=== PATIENT | male | born 1955 | race Caucasian/White ===

== ENCOUNTER 2016-08-21 19:06 | Emergency (ER) | payer BC ==
[2016-08-21] MEDS ORDERED: HYDROCODONE/ACETAMINOPHEN 5-325 MG 6 TAB/DSPK PO PRN (20:57)
--- NOTE | 2016-08-21 20:57 | ER Document Report ---
ED General - General Chief Complaint: Toe Injury Stated Complaint: INJURED TOE Time Seen by Provider: 08/21/16 20:24 TRAVEL OUTSIDE OF THE [place] IN LAST 30 DAYS: No - HPI Patient complains to provider of: toe injury Notes: Patient coming in for left toe injury after dropping infarcting from his toe today. Patient has a history of diabetes. Patient states pain at the first MCP joint - Related Data Allergies/Adverse Reactions: No Known Allergies Allergy (Verified 11/08/15 07:04) Past Medical History - Social History Smoking Status: Unknown if Ever Smoked Family History: Reviewed & Not Pertinent - Past Medical History Cardiac Medical History: Reports: Hx Hypertension Endocrine Medical History: Reports: Hx Diabetes Mellitus Type 2 Renal/ Medical History: Denies: Hx Peritoneal Dialysis Review of Systems - Review of Systems Constitutional: No symptoms reported EENT: No symptoms reported Cardiovascular: No symptoms reported Respiratory: No symptoms reported Gastrointestinal: No symptoms reported Genitourinary: No symptoms reported Male Genitourinary: No symptoms reported Musculoskeletal: Other - Toe pain Skin: No symptoms reported Hematologic/Lymphatic: No symptoms reported Neurological/Psychological: No symptoms reported Physical Exam - Vital signs Vitals: Pulse Pulse Ox 79 96 08/21/16 19:20 08/21/16 19:20 Interpretation: Normal - General General appearance: Appears well, Alert - HEENT Head: Normocephalic, Atraumatic Eyes: Normal Pupils: PERRL - Respiratory Respiratory status: No respiratory distress Chest status: Nontender Breath sounds: Normal Chest palpation: Normal - Cardiovascular Rhythm: Regular Heart sounds: Normal auscultation Murmur: No - Abdominal Inspection: Normal Distension: No distension Bowel sounds: Normal Tenderness: Nontender Organomegaly: No organomegaly - Back Back: Normal, Nontender - Extremities General upper extremity: Normal inspection, Nontender, Normal color, Normal ROM , Normal temperature General lower extremity: Nontender, Normal color, Normal ROM, Normal temperature , Normal weight bearing. No: Normal inspection - Patient has bruising underneath the first now. There is no redness and swelling of the greater toe. Pain on range of motion., Cori's sign - Neurological Neuro grossly intact: Yes Cognition: Normal Orientation: AAOx4 [place] Coma Scale Eye Opening: Spontaneous Miguel Coma Scale Verbal: Oriented Miguel Coma Scale Motor: Obeys Commands [place] Coma Scale Total: 15 Speech: Normal Motor strength normal: LUE, RUE, LLE, RLE Sensory: Normal - Psychological Associated symptoms: Normal affect, Normal mood - Skin Skin Temperature: Warm Skin Moisture: Dry Skin Color: Normal Course - Re-evaluation Re-evalutation: 08/21/16 20:49 08/21/16 20:57 Shows a fracture. Patient will be placed in a postop shoe. Patient was has crutches at home. Pain medication will be given patient was also given orthopedic follow-up - Vital Signs Vital signs: Temp Pulse Resp BP Pulse Ox 98.2 F 78 174/75 H 96 08/21/16 19:21 08/21/16 19:21 08/21/16 19:21 08/21/16 19:21 Procedures - Immobilization Left Great toe Immobilizer type: Post-op shoe Performed by: CLARE Post-Proc Neuro Vasc Exam: Normal Alignment checked and good: Yes Discharge - Discharge Clinical Impression: Fracture of left great toe Qualifiers: Encounter type: initial encounter Fracture type: closed Phalanx: distal Fracture alignment: nondisplaced Qualified Code(s): S92.425A - Nondisplaced fracture of distal phalanx of left great toe, initial encounter for closed fracture Condition: Good Disposition: HOME, SELF-CARE Instructions: Fractured Toe ([facility]), Oral Narcotic Medication ([facility]) Additional Instructions: He may take Tylenol for pain. Ice and elevation to help out with swelling. He may take the narcotic pain medication for severe pain. He may follow-up with the orthopedic doctor provided in a week. He may also see your primary care doctor for follow-up. Prescriptions: Oxycodone HCl 5 mg PO Q6 #30 tablet Forms: Return to Work Referrals: MARLENI MILLS MD [ACTIVE STAFF] - Follow up in 1 week
[2016-08-22 06:18] VITALS: BP 170/80
== END 2016-08-21 21:05 | disposition home or self-care (01) ==
LOC: ER 19:06
DX: S92.425A Nondisplaced fracture of distal phalanx of left great toe, initial encounter for closed fracture (principal); W20.8XXA Other cause of strike by thrown, projected or falling object, initial encounter; E11.9 Type 2 diabetes mellitus without complications; I10 Essential (primary) hypertension
CPT/HCPCS: 99283

== ENCOUNTER → 2016-11-11 | Outpatient (CLI) | payer BC ==
--- NOTE | 2016-11-11 18:23 | RADIOLOGY REPORT (SQ) ---
EXAM DESCRIPTION: VENOUS UNILATERAL LOWER COMPLETED DATE/TIME: 11/11/2016 5:52 pm REASON FOR STUDY: RLE SWELLING R22.41 LOCALIZED SWELLING, MASS AND LUMP, RIGHT LOWER LIMB COMPARISON: None. TECHNIQUE: Dynamic and static chowdhury scale and color images acquired of the right leg venous system. S elected spectral images acquired with additional compression and augmentation maneuvers. The contrala teral common femoral vein and saphenofemoral junction were also imaged. Images stored on PACS. LIMITATIONS: None. FINDINGS: COMMON FEMORAL: Normal phasicity, compression and augmentation. No visualized echogenic ma terial on chowdhury scale. No defects on color images. FEMORAL: Normal compression and augmentation. No visualized echogenic material on chowdhury scale. No defe cts on color images. POPLITEAL: Normal compression, augmentation. No visualized echogenic material on chowdhury scale. No defec ts on color images. CALF VESSELS: Normal compression, augmentation. No visualized echogenic material on chowdhury scale. No de fects on color images. GSV and SSV: Normal compression, augmentation. No visualized echogenic material on chowdhury scale. No def ects on color images. ANY DEEP VENOUS INSUFFICIENCY: Not evaluated. ANY EVIDENCE OF POPLITEAL CYST: No. OTHER: No other significant finding. CONTRALATERAL COMMON FEMORAL VEIN AND SAPHENOFEMORAL JUNCTION: Normal phasicity, compression and augmentation. No visualized echogenic material on chowdhury scale. No de fects on color images. IMPRESSION: NO EVIDENCE OF DVT OR SVT IN THE RIGHT LEG. TECHNICAL DOCUMENTATION: JOB ID: [id number] [employer]- All Rights Reserved
== END ==
LOC: SP 16:55
PROVIDERS: ATTEND Internal Medicine
DX: R22.41 Localized swelling, mass and lump, right lower limb (principal)
CPT/HCPCS: 93971

== ENCOUNTER → 2018-09-27 | Outpatient (CLI) | payer BC ==
--- NOTE | 2018-09-27 13:48 | RADIOLOGY REPORT (SQ) ---
EXAM DESCRIPTION: CHEST PA/LATERAL COMPLETED DATE/TIME: 09/27/2018 1:35 pm REASON FOR STUDY: CHRONIC SINUSITIS COMPARISON: 12/20/2015 EXAM PARAMETERS: NUMBER OF VIEWS: two views TECHNIQUE: Digital Frontal and Lateral radiographic views of the chest acquired. RADIATION DOSE: NA LIMITATIONS: none FINDINGS: LUNGS AND PLEURA: No opacities, masses or pneumothorax. No pleural effusion. MEDIASTINUM AND HILAR STRUCTURES: No masses or contour abnormalities. HEART AND VASCULAR STRUCTURES: Heart normal size. No evidence for failure. BONES: No acute findings. HARDWARE: None in the chest. OTHER: No other significant finding. IMPRESSION: NO SIGNIFICANT RADIOGRAPHIC FINDING IN THE CHEST. TECHNICAL DOCUMENTATION: JOB ID: [id number] [employer]- All Rights Reserved Reading location - IP/workstation name: [email or web address]
--- NOTE | 2018-09-27 14:15 | RADIOLOGY REPORT (SQ) ---
EXAM DESCRIPTION: PARANASAL SINUSES COMPLETED DATE/TIME: 09/27/2018 1:35 pm REASON FOR STUDY: CHRONIC SINUSITIS J32.9 CHRONIC SINUSITIS, UNSPECIFIED COMPARISON: None. NUMBER OF VIEWS: Three views TECHNIQUE: Images of the paranasal sinuses acquired. LIMITATIONS: None. FINDINGS: ORBITS: No fracture. No foreign body. SINUSES: No mucosal thickening. No air fluid levels. FACIAL BONES: No fracture. OTHER: No other significant finding. IMPRESSION: NO FOREIGN BODY OR FRACTURE. NO PLAIN RADIOGRAPHIC EVIDENCE FOR SINUS DISEASE. TECHNICAL DOCUMENTATION: JOB ID: [id number] [employer]- All Rights Reserved Reading location - IP/workstation name: [email or web address]
== END ==
LOC: OD 13:13
PROVIDERS: ATTEND Internal Medicine
DX: J32.9 Chronic sinusitis, unspecified (principal)
CPT/HCPCS: 70220; 71046

== ENCOUNTER 2020-01-21 17:27 | Emergency (ER) | payer MEDICARE | END 2020-01-21 18:35 | disposition left against medical advice (07) | LOC: ER 17:27 | DX: Z53.21 Procedure and treatment not carried out due to patient leaving prior to being seen by health care provider (principal) ==

== ENCOUNTER 2020-01-21 20:13 | Inpatient (IN) | payer MEDICARE ==
[2020-01-21] MEDS ORDERED: LEVOFLOXACIN 750 MG/D5W RTU 750 MG/150 ML RTUPB IV ONE (21:09)
--- NOTE | 2020-01-21 21:12 | ER Document Report ---
ED Medical Screen (RME) - General Chief Complaint: Cough Stated Complaint: COUGH,CONGESTION Time Seen by Provider: 01/21/20 21:08 Primary Care Provider: JOHN FISHER MD [Primary Care Provider] - Follow up as needed Mode of Arrival: Wheelchair Information source: Patient Notes: HPI; 64-year-old male presents to the emergency room after being diagnosed as an outpatient today for pneumonia by his primary care physician Dr. Fisher Patient states he has had body aches with decreased appetite and a cough since January 10. Has been running low-grade fevers until yesterday. States he did get a COVID test on January 13 and was told on January 17 that he has a positive COVID. Has been taking Tylenol for his fever and pain. PE: Alert and oriented x3. Lungs: Scattered rhonchi no wheezes no rales. Heart: Regular rate rhythm without murmurs, rubs, gallops. I have greeted and performed a rapid initial assessment of this patient. A comprehensive ED assessment and evaluation of the patient, analysis of test results and completion of the medical decision making process will be conducted by additional ED providers. I have specifically instructed the patient or family members with the patient to immediately return to any nursing staff should anything change in the patient's condition or with their chief complaint. TRAVEL OUTSIDE OF THE [place] IN LAST 30 DAYS: No - Related Data Allergies/Adverse Reactions: No Known Allergies Allergy (Verified 11/08/15 07:04) Past Medical History - Past Medical History Cardiac Medical History: Reports: Hx Hypertension Endocrine Medical History: Reports: Hx Diabetes Mellitus Type 2 Renal/ Medical History: Denies: Hx Peritoneal Dialysis Physical Exam - Vital signs Vitals: Temp Pulse Resp BP Pulse Ox 98.4 F 85 20 156/78 H 91 L 01/21/20 21:25 01/21/20 21:25 01/21/20 21:25 01/21/20 21:25 01/21/20 21:25 Course - Vital Signs Vital signs: Temp Pulse Resp BP Pulse Ox 98.4 F 85 20 156/78 H 91 L 01/21/20 21:25 01/21/20 21:25 01/21/20 21:25 01/21/20 21:25 01/21/20 21:25 Doctor's Discharge - Discharge Referrals: JOHN FISHER MD [Primary Care Provider] - Follow up as needed
[2020-01-21 22:31] LABS: ABSOLUTE LYMPHOCYTES (AUTO) 1.5 10^3/uL (0.5-4.7); ABSOLUTE MONOCYTES (AUTO) 0.6 10^3/uL (0.1-1.4); BASOPHILS % (AUTO) 0.5 % (0-2); EOSINOPHILS % (AUTO) 0.9 % (0-6); HEMATOCRIT 45.1 % (37.9-51.0); HEMOGLOBIN 15.3 g/dL (13.5-17.0); LYMPHOCYTES % (AUTO) 28.6 % (13-45); MEAN CORPUSCULAR HEMOGLOBIN 28.6 pg (27.0-33.4); MEAN CORPUSCULAR HGB CONC 33.8 g/dL (32.0-36.0); MEAN CORPUSCULAR VOLUME 84 fl (80-97); MONOCYTES % (AUTO) 12.3 % (3-13); PLATELET COUNT 276 10^3/uL (150-450); RED BLOOD COUNT 5.34 10^6/uL (4.35-5.55); RED CELL DISTRIBUTION WIDTH 14.1 % (11.5-14.0); SEGMENTED NEUTROPHILS % (AUTO) 57.7 % (42-78); TOTAL CELLS COUNTED % (AUTO) 100 %; WHITE BLOOD COUNT 5.2 10^3/uL (4.0-10.5)
--- NOTE | 2020-01-21 22:39 | ER Document Report ---
ED Respiratory Problem - General Chief Complaint: Shortness Of Breath Stated Complaint: COUGH,CONGESTION Time Seen by Provider: 01/21/20 21:08 Primary Care Provider: JOHN FISHER MD [Primary Care Provider] - Follow up as needed Mode of Arrival: Wheelchair Notes: ED Medical Screen ([place] Notes) - General Chief Complaint: Cough Stated Complaint: COUGH,CONGESTION Time Seen by Provider: 01/21/20 21:08 Primary Care Provider: JOHN FISHER MD [Primary Care Provider] - Follow up as needed Mode of Arrival: Wheelchair Information source: Patient Notes: HPI; 64-year-old male presents to the emergency room after being diagnosed as an outpatient today for pneumonia by his primary care physician Dr. Fisher Patient states he has had body aches with decreased appetite and a cough since January 10. Has been running low-grade fevers until yesterday. States he did get a COVID test on January 13 and was told on January 17 that he has a positive COVID. Has been taking Tylenol for his fever and pain. PE: Alert and oriented x3. Lungs: Scattered rhonchi no wheezes no rales. Heart: Regular rate rhythm without murmurs, rubs, gallops. MY NOTES 64-year-old male arrives by POV after being diagnosed on 13 January after having symptoms of fever and cough since 10 January. Patient tested positive for COVID-19. Patient was feeling somewhat better for a few days and then began to have no appetite and no strength and mild cough with no p.o. intake for at least 4 to 5 days. Monday he awoke with severe disorientation. Tonight patient says his appetite is better and would like to drink some Pepsi and peanut butter crackers. His saturations are 91% on oxygen. He reports if he "attempts to walk 5 feet he feels very diaphoretic and weak with tachycardia and cannot walk 10 feet at all." Patient denies any hemoptysis diarrhea constipation smell or taste problems skin rash rhinorrhea nuchal rigidity TRAVEL OUTSIDE OF THE [place] IN LAST 30 DAYS: No - Related Data Allergies/Adverse Reactions: No Known Allergies Allergy (Verified 11/08/15 07:04) Past Medical History - General Information source: Patient - Social History Smoking Status: Former Smoker Frequency of alcohol use: None Drug Abuse: None Family History: Reviewed & Not Pertinent - Past Medical History Cardiac Medical History: Reports: Hx Hypertension Endocrine Medical History: Reports: Hx Diabetes Mellitus Type 2 Renal/ Medical History: Denies: Hx Peritoneal Dialysis Physical Exam - Vital signs Vitals: Temp Pulse Resp BP Pulse Ox 98.4 F 85 20 156/78 H 91 L 01/21/20 21:25 01/21/20 21:25 01/21/20 21:25 01/21/20 21:25 01/21/20 21:25 Course - Vital Signs Vital signs: Temp Pulse Resp BP Pulse Ox 98.4 F 85 20 156/78 H 91 L 01/21/20 22:15 01/21/20 21:25 01/21/20 21:25 01/21/20 21:25 01/21/20 21:25 - Laboratory Result Diagrams: 01/21/20 22:15 01/21/20 22:15 Laboratory results interpreted by me: 01/21/20 01/21/20 01/21/20 22:15 22:15 22:42 RDW 14.1 H Sodium 134.5 L Chloride 92 L Glucose 172 H Direct Bilirubin 0.5 H ALT 56 H Urine Protein 100 H Urine Glucose (UA) >=500 H Urine Ketones 20 H Urine Blood SMALL H - Diagnostic Test Radiology reviewed: Reports reviewed - EKG Interpretation by Me EKG shows normal: Sinus rhythm Rate: Normal Rhythm: NSR Critical Care Note - Critical Care Note Comments: Via the roll clamp operator telephone of the hospital we spoke with Dr. Fisher at 2320 and he advised admission. Advised Dr. Fisher of the patient's chest x-ray and physical findings and the fact that we had ordered rimmed to severe Decadron Pepcid Lovenox aspirin and Levaquin. Discharge - Discharge Clinical Impression: COVID-19 virus infection, Pneumonitis Dyspnea Qualifiers: Dyspnea type: unspecified Qualified Code(s): R06.00 - Dyspnea, unspecified Condition: Stable Disposition: ADMITTED INPATIENT Admitting Provider: Will Unit Admitted: IMCU Referrals: JOHN FISHER MD [Primary Care Provider] - Follow up as needed
[2020-01-21 22:50] LABS: ALBUMIN 4.2 g/dL (3.5-5.0); ALKALINE PHOSPHATASE 111 U/L (38-126); ANION GAP 16 (5-19); ASPARTATE AMINO TRANSFERASE 49 U/L (17-59); BILIRUBIN,DIRECT 0.5 mg/dL (0.0-0.4); BILIRUBIN,TOTAL 0.7 mg/dL (0.2-1.3); BLOOD UREA NITROGEN 20 mg/dL (7-20); CALCIUM 9.6 mg/dL (8.4-10.2); CARBON DIOXIDE 27 mmol/L (22-30); CHLORIDE 92 mmol/L (98-107); GLUCOSE 172 mg/dL (75-110); POTASSIUM 4.1 mmol/L (3.6-5.0); TOTAL PROTEIN 7.8 g/dL (6.3-8.2)
[2020-01-21 22:58] LABS: APPEARANCE,URINE CLEAR; BILIRUBIN,URINE NEGATIVE (NEGATIVE); COLOR,URINE YELLOW; GLUCOSE, URINE >=500 mg/dL (NEGATIVE); KETONES,URINE 20 mg/dL (NEGATIVE); LEUKOCYTE ESTERASE,URINE NEGATIVE (NEGATIVE); NITRITE,URINE NEGATIVE (NEGATIVE); PROTEIN,URINE 100 mg/dL (NEGATIVE); URINE SPECIFIC GRAVITY 1.037; UROBILINOGEN,URINE NEGATIVE mg/dL (<2.0)
[2020-01-21] MEDS ORDERED: DEXAMETHASONE SOD PHOS INJ 10 MG/1 ML VIAL IV ONE (23:18)
[2020-01-21] MEDS ORDERED: FAMOTIDINE INJ/PF 20 MG/2 ML SDV IV ONE (23:19)
[2020-01-21] MEDS ORDERED: ASPIRIN 81 MG TABLET, CHEWABLE PO ONE (23:20)
[2020-01-21] MEDS ORDERED: ENOXAPARIN SODIUM INJ 100 MG/1 ML DISP.SYRIN SUBCUT SCH (23:30)
[2020-01-21 23:39] LABS: INTERNATIONAL RATION (INR) 0.88; PARTIAL THROMBOPLASTIN TIME 27.1 SEC (23.5-35.8); PROTHROMBIN TIME 12.2 SEC (11.4-15.4)
[2020-01-21] MEDS ORDERED: GLUCAGON,HUMAN RECOMB 1 MG INJ IM PRN (23:39)
[2020-01-21] MEDS ORDERED: DEXTROSE 50%-WATER 25 GM/50 ML DISP.SYRIN IV PRN ×2 (23:39)
[2020-01-21] MEDS ORDERED: DEXTROSE 40% GEL 15 GM TUBE PO PRN ×2 (23:39)
--- NOTE | 2020-01-21 23:39 | RADIOLOGY REPORT (SQ) ---
EXAM DESCRIPTION: XR CHEST 1 VIEW COMPLETED DATE/TME: 01/21/2020 22:40 CLINICAL HISTORY: 64 years, Male, covid pos COMPARISON: 01/21/2020 chest at 12:54 PM NUMBER OF VIEWS: 1 TECHNIQUE: Portable chest LIMITATIONS: None. FINDINGS: Heart size upper limits of normal. Interstitial and airspace opacities bilaterally. No pneumothorax. IMPRESSION: Interstitial and airspace opacities bilaterally, as before copyright 2010 [employer]- All Rights Reserved
--- NOTE | 2020-01-21 23:40 | PDOC H&P ---
History of Present Illness Admission Date/PCP: JOHN FISHER MD History of Present Illness: MYNOR GALINDO JR is a 64 year old male, Patient was diagnosed with SARS-CoV-2 infection, I had a telehealth encounter with him yesterday, he complained of shortness of breath, I ordered a chest x-ray, it demonstrated multifocal bilateral infiltrates consistent with COVID immediately advised him to go to the ER for evaluation and possible admission.Arterial blood gas revealed pH 7.46, PO2 37.8, bicarbonate 25.1 on ambient air Past Medical History Cardiac Medical History: Reports: Coronary Artery Disease, Hypertension Endocrine Medical History: Reports: Diabetes Mellitus Type 2 Social History Smoking Status: Former Smoker Frequency of Alcohol Use: None Drugs: None Hx Prescription Drug Abuse: No Family History Family History: Reviewed & Not Pertinent Parental Family History Reviewed: Yes Children Family History Reviewed: Yes Sibling(s) Family History Reviewed.: Yes Medication/Allergy Home Medications: Amlodipine Besylate 5 mg PO DAILY 11/08/15 Losartan Potassium 100 mg PO DAILY 11/08/15 Metformin HCl [Glucophage] 1,000 mg PO BID 11/08/15 Metoprolol Tartrate [Lopressor 25 mg Tablet] 25 mg PO Q12 11/08/15 Aspirin [Ecotrin 81 mg EC Tablet] 81 mg PO DAILY #30 tabec 11/10/15 Glimepiride [Amaryl] 2 mg PO BID #0 tablet 11/10/15 Acetaminophen [Tylenol 8 Hour] 1,300 mg PO Q8HP PRN 01/22/20 Chlorpheniramine Maleate [Chlor-Trimeton 4 mg Tablet] 4 mg PO Q6HP PRN 01/22/20 Clopidogrel Bisulfate [Plavix 75 mg Tablet] 75 mg PO DAILY 01/22/20 Empagliflozin [Jardiance] 25 mg PO DAILY 01/22/20 Pantoprazole Sodium [Protonix [address] Tablet] 40 mg PO Q6AM 01/22/20 Allergies/Adverse Reactions: No Known Allergies Allergy (Verified 11/08/15 07:04) Review of Systems Constitutional: ABSENT: chills, fever(s), headache(s), weight gain, weight loss Eyes: ABSENT: visual disturbances Ears: ABSENT: hearing changes Cardiovascular: ABSENT: chest pain, dyspnea on exertion, edema, orthropnea, palpitations Respiratory: PRESENT: cough, dyspnea Gastrointestinal: ABSENT: abdominal pain, constipation, diarrhea, hematemesis, hematochezia, nausea, vomiting Genitourinary: ABSENT: dysuria, hematuria Musculoskeletal: ABSENT: joint swelling Integumentary: ABSENT: rash, wounds Neurological: ABSENT: abnormal gait, abnormal speech, confusion, dizziness, focal weakness, syncope Psychiatric: ABSENT: anxiety, depression, homidical ideation, suicidal ideation Endocrine: ABSENT: cold intolerance, heat intolerance, menstrual abnormalities, polydipsia, polyuria Hematologic/Lymphatic: ABSENT: easy bleeding, easy bruising, lymphadenopathy Physical Exam Vital Signs: Temp Pulse Resp BP Pulse Ox 98.4 F 85 20 156/78 H 91 L 01/21/20 22:15 01/21/20 21:25 01/21/20 21:25 01/21/20 21:25 01/21/20 21:25 Intake & Output 01/20/20 01/21/20 01/22/20 06:59 06:59 06:59 Weight 108.862 kg General appearance: PRESENT: no acute distress Head exam: PRESENT: atraumatic, normocephalic Ear exam: PRESENT: normal external ear exam Mouth exam: PRESENT: moist, tongue midline Neck exam: PRESENT: full ROM Respiratory exam: PRESENT: rhonchi Cardiovascular exam: PRESENT: RRR, +S1, +S2 Pulses: PRESENT: normal dorsalis pedis pul, +2 pedal pulses bilateral Vascular exam: PRESENT: normal capillary refill GI/Abdominal exam: PRESENT: normal bowel sounds, soft Rectal exam: PRESENT: deferred Neurological exam: PRESENT: alert, CN II-XII grossly intact Psychiatric exam: PRESENT: appropriate affect, normal mood Skin exam: PRESENT: dry, intact, warm. ABSENT: cyanosis, rash Results Laboratory Results: 01/21/20 22:15 01/21/20 22:15 01/21/20 01/21/20 01/21/20 22:15 22:15 22:15 WBC 5.2 RBC 5.34 Hgb 15.3 Hct 45.1 MCV 84 MCH 28.6 MCHC 33.8 RDW 14.1 H Plt Count 276 Seg Neutrophils % 57.7 Sodium 134.5 L Potassium 4.1 Chloride 92 L Carbon Dioxide 27 Anion Gap 16 BUN 20 Creatinine 0.86 Est GFR ( Amer) > 60 Glucose 172 H Lactic Acid 1.3 Calcium 9.6 Total Bilirubin 0.7 AST 49 Alkaline Phosphatase 111 Total Protein 7.8 Albumin 4.2 Urine Color Urine Appearance Urine pH Ur Specific [place] Urine Protein Urine Glucose (UA) Urine Ketones Urine Blood Urine Nitrite Ur Leukocyte Esterase Urine WBC (Auto) Urine RBC (Auto) 01/21/20 22:42 WBC RBC Hgb Hct MCV MCH MCHC RDW Plt Count Seg Neutrophils % Sodium Potassium Chloride Carbon Dioxide Anion Gap BUN Creatinine Est GFR ( Amer) Glucose Lactic Acid Calcium Total Bilirubin AST Alkaline Phosphatase Total Protein Albumin Urine Color YELLOW Urine Appearance CLEAR Urine pH 5.0 Ur Specific [place] 1.037 Urine Protein 100 H Urine Glucose (UA) >=500 H Urine Ketones 20 H Urine Blood SMALL H Urine Nitrite NEGATIVE Ur Leukocyte Esterase NEGATIVE Urine WBC (Auto) 1 Urine RBC (Auto) 0 Impressions: Chest X-Ray 01/21/20 22:40 IMPRESSION: Interstitial and airspace opacities bilaterally, as before copyright 2011 [employer]- All Rights Reserved Assessment & Plan - Diagnosis (1) Acute hypoxemic respiratory failure Is this a current diagnosis for this admission?: Yes Plan: Patient to be started on supplemental oxygen via nasal cannula (2) Acute hypoxemic respiratory failure due to COVID-19 Is this a current diagnosis for this admission?: Yes Plan: Start Remdesivir for a total of 5 days, dexamethasone for a total of 10 days (3) T2DM (type 2 diabetes mellitus) Qualifiers: Diabetes mellitus retirement insulin use: with retirement use Diabetes mellitus complication status: with neurologic complications Diabetes mellitus complication detail: with polyneuropathy Qualified Code(s): E11.42 - Type 2 diabetes mellitus with diabetic polyneuropathy; Z79.4 - senior care (current) use of insulin Is this a current diagnosis for this admission?: Yes Plan: Most likely hyperglycemia will ensue from use of dexamethasone needs to watch closely especially in this patient with poorly controlled diabetes at baseline (4) Coronary artery disease Qualifiers: Coronary Disease-Associated Artery/Lesion type: [place] artery [place] vs. transplanted heart: [place] heart Associated angina: without angina Qualified Code(s): I25.10 - Atherosclerotic heart disease of [place] coronary artery wi thout angina pectoris Is this a current diagnosis for this admission?: Yes - Time Time Spent: Greater than 70 Minutes Critical Time spent with patient: 35 or more minutes Medications reviewed and adjusted accordingly: Yes Anticipated Discharge Disposition: Home, Self Care Anticipated Discharge Timeframe: 10 days - Inpatient Certification Based on my medical assessment, after consideration of the patient's comorbidities, presenting symptoms, or acuity I expect that the services needed warrant INPATIENT care.: Yes I certify that my determination is in accordance with my understanding of Medicare's requirements for reasonable and necessary INPATIENT services [42 CFR 412.3e].: Yes
[2020-01-21] MEDS ORDERED: INSULIN LISPRO 100 UNIT/ML 3 ML VIAL SUBCUT ONE (23:45)
[2020-01-22 00:22] LABS: CREATINE KINASE MB 0.57 ng/mL (<4.55); NT PRO BNP 35 pg/mL (<125)
[2020-01-22 00:25] LABS: TROPONIN I < 0.012 ng/mL
[2020-01-22] MEDS ORDERED: ENOXAPARIN SODIUM INJ 40 MG/0.4 ML DISP.SYRIN SUBCUT ONE (00:30)
[2020-01-22 01:42] LABS: ARTERIAL BLOOD BASE EXCESS 1.5 mmol/L; ARTERIAL BLOOD HCO3 25.1 mmol/L (20-24); ARTERIAL BLOOD O2 SATURATION 75.1 % (94-98); ARTERIAL BLOOD PCO2 36.4 mmHg (35-45); ARTERIAL BLOOD PH 7.46 (7.35-7.45); ARTERIAL BLOOD TOTAL CO2 26.2 mmol/L (23-27)
[2020-01-22 01:44] LABS: ARTERIAL BLOOD FIO2 ROOM AIR
[2020-01-22 01:46] LABS: ARTERIAL BLOOD PO2 37.8 mmHg (80-100)
[2020-01-22] MEDS: NORMAL SALINE 1000 ML 1,000 ML IV PRN (04:20)
[2020-01-22 06:49] LABS: APPEARANCE,URINE CLEAR; BILIRUBIN,URINE NEGATIVE (NEGATIVE); COLOR,URINE YELLOW; GLUCOSE, URINE >=500 mg/dL (NEGATIVE); KETONES,URINE 20 mg/dL (NEGATIVE); LEUKOCYTE ESTERASE,URINE NEGATIVE (NEGATIVE); NITRITE,URINE NEGATIVE (NEGATIVE); PROTEIN,URINE 30 mg/dL (NEGATIVE); URINE SPECIFIC GRAVITY 1.031; UROBILINOGEN,URINE NEGATIVE mg/dL (<2.0)
[2020-01-22 07:29] LABS: HEMATOCRIT 39.9 % (37.9-51.0); MEAN CORPUSCULAR HEMOGLOBIN 29.6 pg (27.0-33.4); MEAN CORPUSCULAR VOLUME 85 fl (80-97); PLATELET COUNT 235 10^3/uL (150-450); RED BLOOD COUNT 4.72 10^6/uL (4.35-5.55); RED CELL DISTRIBUTION WIDTH 13.9 % (11.5-14.0); WHITE BLOOD COUNT 3.7 10^3/uL (4.0-10.5)
[2020-01-22 07:42] LABS: ALBUMIN 3.9 g/dL (3.5-5.0); ALKALINE PHOSPHATASE 106 U/L (38-126); ANION GAP 17 (5-19); ASPARTATE AMINO TRANSFERASE 38 U/L (17-59); BILIRUBIN,DIRECT 0.5 mg/dL (0.0-0.4); BILIRUBIN,TOTAL 0.7 mg/dL (0.2-1.3); BLOOD UREA NITROGEN 22 mg/dL (7-20); CARBON DIOXIDE 19 mmol/L (22-30); CHLORIDE 96 mmol/L (98-107); GLUCOSE 249 mg/dL (75-110); POTASSIUM 4.6 mmol/L (3.6-5.0); TOTAL PROTEIN 7.4 g/dL (6.3-8.2)
[2020-01-22] MEDS ORDERED: REMDESIVIR (EUA) 200 MG in NORMAL SALINE 250 ML IV ONE ×2 (08:00→10:00)
[2020-01-22] MEDS: INSULIN LISPRO 100 UNIT/ML 3 ML VIAL SUBCUT SCH ×4 (08:34→23:41)
[2020-01-22] MEDS: DEXAMETHASONE SOD PHOSPHATE INJ 4 MG/1 ML VIAL IV SCH ×2 (11:42→23:40)
[2020-01-22] MEDS: LEVOFLOXACIN 750 MG/D5W RTU 750 MG/150 ML RTUPB IV SCH (23:39)
[2020-01-22] MEDS: ENOXAPARIN SODIUM INJ 40 MG/0.4 ML DISP.SYRIN SUBCUT SCH (23:39)
[2020-01-23] MEDS: NORMAL SALINE 1000 ML 1,000 ML IV PRN (06:29)
[2020-01-23 06:44] LABS: ABSOLUTE LYMPHOCYTES (AUTO) 0.9 10^3/uL (0.5-4.7); ABSOLUTE MONOCYTES (AUTO) 0.5 10^3/uL (0.1-1.4); ABSOLUTE NEUT (AUTO) 2.5 10^3/uL (1.7-8.2); BASOPHILS % (AUTO) 0.2 % (0-2); HEMATOCRIT 38.5 % (37.9-51.0); LYMPHOCYTES % (AUTO) 22.2 % (13-45); MEAN CORPUSCULAR HGB CONC 33.9 g/dL (32.0-36.0); MEAN CORPUSCULAR VOLUME 86 fl (80-97); MONOCYTES % (AUTO) 12.4 % (3-13); PLATELET COUNT 277 10^3/uL (150-450); RED CELL DISTRIBUTION WIDTH 14.4 % (11.5-14.0); SEGMENTED NEUTROPHILS % (AUTO) 65.2 % (42-78); TOTAL CELLS COUNTED % (AUTO) 100 %; WHITE BLOOD COUNT 3.9 10^3/uL (4.0-10.5)
[2020-01-23 07:01] LABS: ALBUMIN 3.7 g/dL (3.5-5.0); ALKALINE PHOSPHATASE 91 U/L (38-126); ANION GAP 13 (5-19); ASPARTATE AMINO TRANSFERASE 34 U/L (17-59); BILIRUBIN,DIRECT 0.5 mg/dL (0.0-0.4); BILIRUBIN,TOTAL 0.7 mg/dL (0.2-1.3); BLOOD UREA NITROGEN 31 mg/dL (7-20); CARBON DIOXIDE 23 mmol/L (22-30); CHLORIDE 99 mmol/L (98-107); GLUCOSE 261 mg/dL (75-110); POTASSIUM 4.2 mmol/L (3.6-5.0); TOTAL PROTEIN 7.3 g/dL (6.3-8.2)
[2020-01-23] MEDS ORDERED: INFLUENZA QUAD (6MOS+) 2020-21 VAC 0.5 ML SYR IM ONE (08:00)
[2020-01-23] MEDS: INSULIN LISPRO 100 UNIT/ML 3 ML VIAL SUBCUT SCH ×4 (08:17→21:31)
--- NOTE | 2020-01-23 08:28 | RADIOLOGY REPORT (SQ) ---
EXAM DESCRIPTION: CTA CHEST IMAGES COMPLETED DATE/TIME: 01/23/2020 7:54 am REASON FOR STUDY: severe hypoxemia r/o PE COMPARISON: Chest x-ray dated 01/21/2020. Chest CTA dated 11/09/2015. TECHNIQUE: CT scan of the chest performed using helical scanning technique with dynamic intravenous contrast injection. Images reviewed with lung, soft tissue and bone windows. Reconstructed coronal and sagittal MPR images reviewed. Additional 3 dimensional post-processing performed to develop Maximal Intensity Projection images (CA P). All images stored on PACS. All CT scanners at this facility use dose modulation, iterative reconstruction, and/or weight based d osing when appropriate to reduce radiation dose to as low as reasonably achievable (ALARA). [facility]: Dose Right [facility]: CareDose [facility]: Dose Right [facility]: Teradose 4D [facility]: [employer] CONTRAST TYPE AND DOSE: contrast/concentration: Isovue 350.00 mmol/ml; Total Contrast Delivered: 80. 0 ml; Total Saline Delivered: 65.0 ml Contrast bolus adequate for pulmonary arteries and aorta. RENAL FUNCTION: BUN 22 creatinine 0.73. RADIATION DOSE: CT Rad equipment meets quality standard of care and radiation dose reduction techniq ues were employed. CTDIvol: 15.6 - 26.3 mGy. DLP: 603 mGy-cm. . LIMITATIONS: None. FINDINGS: LUNGS AND PLEURA: Diffuse scattered ground-glass opacities throughout both lungs. No pleu ral effusions or pleural calcifications. AORTA AND GREAT VESSELS: No aneurysm. No dissection. HEART: No pericardial effusion. No significant coronary artery calcifications. PULMONARY ARTERIES: No emboli visualized in the main pulmonary arteries or the segmental branches. HILAR AND MEDIASTINAL STRUCTURES: Mediastinal and bilateral hilar adenopathy, unchanged from prior CT A. HARDWARE: None in the chest. UPPER ABDOMEN: No significant findings. Limited exam. THYROID AND OTHER SOFT TISSUES: No masses. No adenopathy. BONES: No acute or significant finding. 3D MIPS: Confirm above findings. OTHER: No other significant finding. IMPRESSION: 1. NORMAL CTA OF THE CHEST. NO PULMONARY EMBOLI. 2. DIFFUSE SCATTERED GROUND-GLASS OPACITIES CONSISTENT WITH PNEUMONIA, LIKELY VIRAL. 3. MEDIASTINAL AND BILATERAL HILAR ADENOPATHY, UNCHANGED FROM PRIOR CTA IN 2016. COMMENT: Quality ID # [id number]: Final reports with documentation of one or more dose reduction techniques (e.g., Automated exposure control, adjustment of the mA and/or kV according to patient size, use of iterative reconstruction technique) TECHNICAL DOCUMENTATION: JOB ID: [id number] 2010 [employer]- All Rights Reserved Reading location - IP/workstation name: [email or web address]
[2020-01-23] MEDS: DEXAMETHASONE SOD PHOSPHATE INJ 4 MG/1 ML VIAL IV SCH ×2 (10:29→21:11)
[2020-01-23] MEDS: REMDESIVIR (EUA) 100 MG in NORMAL SALINE 250 ML IV SCH (10:29)
[2020-01-23] MEDS: LEVOFLOXACIN 750 MG/D5W RTU 750 MG/150 ML RTUPB IV SCH (21:12)
[2020-01-23] MEDS: ENOXAPARIN SODIUM INJ 40 MG/0.4 ML DISP.SYRIN SUBCUT SCH (21:13)
--- NOTE | 2020-01-23 21:33 | PDOC PROGRESS REPORT ---
Subjective Progress Note for:: 01/23/20 Subjective:: Patient was admitted yesterday for treatment of COVID pneumonia,The CT angiogram of the chest negative for PE confirmed pneumonia Reason For Visit: COVID PNEUMONIA, T2DM, CAD Physical Exam Vital Signs: Temp Pulse Resp BP Pulse Ox 97.8 F 62 16 160/85 H 97 01/23/20 20:18 01/23/20 20:18 01/23/20 20:18 01/23/20 20:18 01/23/20 20:18 Intake & Output 01/22/20 01/23/20 01/24/20 06:59 06:59 06:59 Intake Total 150 3204 970 Output Total 3100 Balance 150 104 970 Weight 109 kg 109.3 kg General appearance: PRESENT: no acute distress Eye exam: PRESENT: PERRLA Respiratory exam: PRESENT: rhonchi Cardiovascular exam: PRESENT: +S1, +S2 GI/Abdominal exam: PRESENT: soft Neurological exam: PRESENT: alert, CN II-XII grossly intact Results Laboratory Results: 01/23/20 05:53 01/23/20 05:53 01/23/20 01/23/20 05:53 05:53 WBC 3.9 L RBC 4.50 Hgb 13.0 L Hct 38.5 MCV 86 MCH 29.0 MCHC 33.9 RDW 14.4 H Plt Count 277 Seg Neutrophils % 65.2 Sodium 134.8 L Potassium 4.2 Chloride 99 Carbon Dioxide 23 Anion Gap 13 BUN 31 H Creatinine 0.88 Est GFR ( Amer) > 60 Glucose 261 H Calcium 9.0 Total Bilirubin 0.7 AST 34 Alkaline Phosphatase 91 Total Protein 7.3 Albumin 3.7 01/21/20 01/21/20 23:30 23:30 Creatine Kinase 45 L CK-MB (CK-2) 0.57 Troponin I < 0.012 NT-Pro-B Natriuret Pep 35 Impressions: Chest X-Ray 01/21/20 22:40 IMPRESSION: Interstitial and airspace opacities bilaterally, as before copyright 2011 [employer]- All Rights Reserved Chest/Abdomen CTA 01/23/20 00:00 IMPRESSION: 1. NORMAL CTA OF THE CHEST. NO PULMONARY EMBOLI. 2. DIFFUSE SCATTERED GROUND-GLASS OPACITIES CONSISTENT WITH PNEUMONIA, LIKELY V IRAL. 3. MEDIASTINAL AND BILATERAL HILAR ADENOPATHY, UNCHANGED FROM PRIOR CTA IN 2016. Assessment & Plan - Diagnosis (1) Acute hypoxemic respiratory failure Is this a current diagnosis for this admission?: Yes Plan: Continue supplemental oxygen via nasal cannula (2) Acute hypoxemic respiratory failure due to COVID-19 Is this a current diagnosis for this admission?: Yes Plan: Continue IV Remdesivir for a total of 5 days, IV dexamethasone for a total of 10 days (3) T2DM (type 2 diabetes mellitus) Qualifiers: Diabetes mellitus [facility] insulin use: with intermediate manager use Diabetes mellitus complication status: with neurologic complications Diabetes mellitus complication detail: with polyneuropathy Qualified Code(s): E11.42 - Type 2 diabetes mellitus with diabetic polyneuropathy; Z79.4 - superintendent container terminal (current) use of insulin Is this a current diagnosis for this admission?: Yes (4) Coronary artery disease Qualifiers: Coronary Disease-Associated Artery/Lesion type: [place] artery [place] vs. transplanted heart: [place] heart Associated angina: without angina Qualified Code(s): I25.10 - Atherosclerotic heart disease of [place] coronary artery without angina pectoris Is this a current diagnosis for this admission?: Yes - Time Time Spent with patient: 25-34 minutes Level of Care: IMCU Medications reviewed and adjusted accordingly: Yes Anticipated discharge: Home Anticipated DC Timeframe: within 72 hours - Inpatient Certification Based on my medical assessment, after consideration of the patient's comorbidities, presenting symptoms, or acuity I expect that the services needed warrant INPATIENT care.: Yes I certify that my determination is in accordance with my understanding of Medicare's requirements for reasonable and necessary INPATIENT services [42 CFR 412.3e].: Yes
[2020-01-24 05:44] LABS: ABSOLUTE LYMPHOCYTES (AUTO) 0.9 10^3/uL (0.5-4.7); ABSOLUTE MONOCYTES (AUTO) 0.4 10^3/uL (0.1-1.4); ABSOLUTE NEUT (AUTO) 2.6 10^3/uL (1.7-8.2); BASOPHILS % (AUTO) 0.2 % (0-2); HEMATOCRIT 40.5 % (37.9-51.0); LYMPHOCYTES % (AUTO) 22.4 % (13-45); MEAN CORPUSCULAR HEMOGLOBIN 29.4 pg (27.0-33.4); MEAN CORPUSCULAR HGB CONC 34.5 g/dL (32.0-36.0); MEAN CORPUSCULAR VOLUME 85 fl (80-97); MONOCYTES % (AUTO) 9.7 % (3-13); PLATELET COUNT 287 10^3/uL (150-450); RED BLOOD COUNT 4.77 10^6/uL (4.35-5.55); RED CELL DISTRIBUTION WIDTH 14.2 % (11.5-14.0); SEGMENTED NEUTROPHILS % (AUTO) 67.7 % (42-78); TOTAL CELLS COUNTED % (AUTO) 100 %; WHITE BLOOD COUNT 3.9 10^3/uL (4.0-10.5)
[2020-01-24 06:11] LABS: ALBUMIN 3.9 g/dL (3.5-5.0); ALKALINE PHOSPHATASE 93 U/L (38-126); ANION GAP 13 (5-19); ASPARTATE AMINO TRANSFERASE 33 U/L (17-59); BILIRUBIN,DIRECT 0.4 mg/dL (0.0-0.4); BILIRUBIN,TOTAL 0.7 mg/dL (0.2-1.3); BLOOD UREA NITROGEN 30 mg/dL (7-20); CALCIUM 9.2 mg/dL (8.4-10.2); CARBON DIOXIDE 23 mmol/L (22-30); CHLORIDE 100 mmol/L (98-107); GLUCOSE 237 mg/dL (75-110); POTASSIUM 4.7 mmol/L (3.6-5.0); TOTAL PROTEIN 7.1 g/dL (6.3-8.2)
[2020-01-24 08:23] LABS: APPEARANCE,URINE CLEAR; BILIRUBIN,URINE NEGATIVE (NEGATIVE); COLOR,URINE YELLOW; GLUCOSE, URINE >=500 mg/dL (NEGATIVE); KETONES,URINE 20 mg/dL (NEGATIVE); LEUKOCYTE ESTERASE,URINE NEGATIVE (NEGATIVE); NITRITE,URINE NEGATIVE (NEGATIVE); PROTEIN,URINE NEGATIVE (NEGATIVE); UROBILINOGEN,URINE NEGATIVE mg/dL (<2.0)
[2020-01-24] MEDS: INSULIN LISPRO 100 UNIT/ML 3 ML VIAL SUBCUT SCH ×4 (08:47→22:49)
[2020-01-24] MEDS: DEXAMETHASONE SOD PHOSPHATE INJ 4 MG/1 ML VIAL IV SCH ×2 (12:12→21:15)
[2020-01-24] MEDS: REMDESIVIR (EUA) 100 MG in NORMAL SALINE 250 ML IV SCH (12:13)
[2020-01-24] MEDS: NORMAL SALINE 1000 ML 1,000 ML IV PRN (19:00)
[2020-01-24] MEDS: ENOXAPARIN SODIUM INJ 40 MG/0.4 ML DISP.SYRIN SUBCUT SCH (21:16)
[2020-01-24] MEDS: LEVOFLOXACIN 750 MG/D5W RTU 750 MG/150 ML RTUPB IV SCH (21:16)
--- NOTE | 2020-01-24 22:17 | PDOC PROGRESS REPORT ---
Subjective Progress Note for:: 01/24/20 Subjective:: Patient was admitted for the management of COVID-19 positive test (U07.1, COVID- 19) with Acute Pneumonia (J12.89, Other viral pneumonia) (If respiratory failure or sepsis present, add as separate assessment)Associated with hypoxemia Presently on IV remdesivir IV dexamethasone, he continues to require supplemental oxygen via nasal cannula, he has no new complaints. CTA chest done yesterday negative for pulmonary embolism Reason For Visit: COVID PNEUMONIA, T2DM, CAD Physical Exam Vital Signs: Temp Pulse Resp BP Pulse Ox 97.7 F 64 18 145/75 H 95 01/24/20 20:12 01/24/20 20:12 01/24/20 20:12 01/24/20 20:12 01/24/20 20:12 Intake & Output 01/23/20 01/24/20 01/25/20 06:59 06:59 06:59 Intake Total 3204 1420 250 Output Total 3100 Balance 104 1420 250 Weight 109.3 kg 109.3 kg General appearance: PRESENT: no acute distress Eye exam: PRESENT: PERRLA Respiratory exam: PRESENT: rhonchi Cardiovascular exam: PRESENT: +S1, +S2 GI/Abdominal exam: PRESENT: soft Neurological exam: PRESENT: alert, CN II-XII grossly intact Results Laboratory Results: 01/24/20 04:41 01/24/20 04:41 01/24/20 01/24/20 01/24/20 04:41 04:41 08:00 WBC 3.9 L RBC 4.77 Hgb 14.0 Hct 40.5 MCV 85 MCH 29.4 MCHC 34.5 RDW 14.2 H Plt Count 287 Seg Neutrophils % 67.7 Sodium 136.4 L Potassium 4.7 Chloride 100 Carbon Dioxide 23 Anion Gap 13 BUN 30 H Creatinine 0.73 Est GFR ( Amer) > 60 Glucose 237 H Calcium 9.2 Total Bilirubin 0.7 AST 33 Alkaline Phosphatase 93 Total Protein 7.1 Albumin 3.9 Urine Color YELLOW Urine Appearance CLEAR Urine pH 5.0 Ur Specific [place] 1.030 Urine Protein NEGATIVE Urine Glucose (UA) >=500 H Urine Ketones 20 H Urine Blood NEGATIVE Urine Nitrite NEGATIVE Ur Leukocyte Esterase NEGATIVE Urine WBC (Auto) 1 Urine RBC (Auto) 1 01/21/20 22:42 Clean Catch Midstream Urine Culture - Final NO GROWTH 2 DAYS 01/21/20 01/21/20 23:30 23:30 Creatine Kinase 45 L CK-MB (CK-2) 0.57 Troponin I < 0.012 NT-Pro-B Natriuret Pep 35 Impressions: Chest X-Ray 01/21/20 22:40 IMPRESSION: Interstitial and airspace opacities bilaterally, as before copyright 2010 [employer]- All Rights Reserved Chest/Abdomen CTA 01/23/20 00:00 IMPRESSION: 1. NORMAL CTA OF THE CHEST. NO PULMONARY EMBOLI. 2. DIFFUSE SCATTERED GROUND-GLASS OPACITIES CONSISTENT WITH PNEUMONIA, LIKELY VIRAL. 3. MEDIASTINAL AND BILATERAL HILAR ADENOPATHY, UNCHANGED FROM PRIOR CTA IN 2016. Assessment & Plan - Diagnosis (1) Acute hypoxemic respiratory failure Is this a current diagnosis for this admission?: Yes Plan: Continue supplemental oxygen via nasal cannula (2) Acute hypoxemic respiratory failure due to COVID-19 Is this a current diagnosis for this admission?: Yes Plan: Continue IV Remdesivir for a total of 5 days, IV dexamethasone for a total of 10 days (3) T2DM (type 2 diabetes mellitus) Qualifiers: Diabetes mellitus fdc insulin use: with fdc use Diabetes tao christianson complication status: with neurologic complications Diabetes mellitus complication detail: with polyneuropathy Qualified Code(s): E11.42 - Type 2 diabetes mellitus with diabetic polyneuropathy; 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 transplanted heart: [place] heart Associated angina: without angina Qualified Code(s): I25.10 - Atherosclerotic heart disease of [place] coronary artery without angina pectoris Is this a current diagnosis for this admission?: Yes Plan: Continue treatment for CAD - Time Time Spent with patient: 35 or more minutes Level of Care: IMCU Smoking Cessation Education: over 10 minutes Medications reviewed and adjusted accordingly: Yes Anticipated discharge: Home Anticipated DC Timeframe: within 72 hours
[2020-01-25] MEDS: INSULIN LISPRO 100 UNIT/ML 3 ML VIAL SUBCUT SCH ×4 (08:30→21:25)
--- NOTE | 2020-01-25 10:35 | PDOC PROGRESS REPORT ---
Subjective Progress Note for:: 01/25/20 Subjective:: Patient was admitted for the Covid pneumonia Patient is currently doing much better Patient's no need for any oxygen No chest pain no short of breath Patient is walking in the room Reason For Visit: COVID PNEUMONIA, T2DM, CAD Physical Exam Vital Signs: Temp Pulse Resp BP Pulse Ox 97.7 F 58 L 20 179/86 H 100 01/25/20 08:45 01/25/20 08:14 01/25/20 08:14 01/25/20 08:14 01/25/20 08:14 Intake & Output 01/24/20 01/25/20 01/26/20 06:59 06:59 06:59 Intake Total 1420 1400 200 Balance 1420 1400 200 Weight 109.3 kg 108.7 kg General appearance: PRESENT: no acute distress, well-developed, well-nourished Head exam: PRESENT: atraumatic, normocephalic Eye exam: PRESENT: conjunctiva pink, EOMI, PERRLA. ABSENT: scleral icterus Ear exam: PRESENT: normal external ear exam Mouth exam: PRESENT: moist, tongue midline Neck exam: PRESENT: full ROM. ABSENT: carotid bruit, JVD, lymphadenopathy, thyromegaly Cardiovascular exam: PRESENT: RRR. ABSENT: diastolic murmur, rubs, systolic murmur Vascular exam: PRESENT: normal capillary refill GI/Abdominal exam: PRESENT: normal bowel sounds, soft. ABSENT: distended, guarding, mass, organolmegaly, rebound, tenderness Rectal exam: PRESENT: deferred Neurological exam: PRESENT: alert, awake, oriented to person, oriented to place, oriented to time, oriented to situation. ABSENT: motor sensory deficit Psychiatric exam: PRESENT: appropriate affect, normal mood. ABSENT: homicidal ideation, suicidal ideation Skin exam: PRESENT: dry, intact, warm. ABSENT: cyanosis, rash Results Laboratory Results: 01/24/20 04:41 01/24/20 04:41 01/21/20 22:42 Clean Catch Midstream Urine Culture - Final NO GROWTH 2 DAYS 01/21/20 01/21/20 23:30 23:30 Creatine Kinase 45 L CK-MB (CK-2) 0.57 Troponin I < 0.012 NT-Pro-B Natriuret Pep 35 Impressions: Chest X-Ray 10/13/20 22:40 IMPRESSION: Interstitial and airspace opacities bilaterally, as before copyright 2010 [employer]- All Rights Reserved Chest/Abdomen CTA 01/23/20 00:00 IMPRESSION: 1. NORMAL CTA OF THE CHEST. NO PULMONARY EMBOLI. 2. DIFFUSE SCATTERED GROUND-GLASS OPACITIES CONSISTENT WITH PNEUMONIA, LIKELY VIRAL. 3. MEDIASTINAL AND BILATERAL HILAR ADENOPATHY, UNCHANGED FROM PRIOR CTA IN 2016. Assessment & Plan - Diagnosis (1) Acute hypoxemic respiratory failure Is this a current diagnosis for this admission?: Yes (2) Acute hypoxemic respiratory failure due to COVID-19 Is this a current diagnosis for this admission?: Yes (3) COVID-19 virus infection Is this a current diagnosis for this admission?: Yes (4) Coronary artery disease Qualifiers: Coronary Disease-Associated Artery/Lesion type: [place] artery [place] vs. transplanted heart: [place] heart Associated angina: without angina Qualified Code(s): I25.10 - Atherosclerotic heart disease of [place] coronary artery without angina pectoris Is this a current diagnosis for this admission?: Yes (5) T2DM (type 2 diabetes mellitus) Qualifiers: Diabetes mellitus predatory animal exterminator insulin use: with residential use Diabetes mellitus complication status: with neurologic complications Diabetes mellitus complication detail: with polyneuropathy Qualified Code(s): E11.42 - Type 2 diabetes mellitus with diabetic polyneuropathy; Z79.4 - long term (current) use of insulin Is this a current diagnosis for this admission?: Yes (6) Hypertension Qualifiers: Hypertension type: essential hypertension Qualified Code(s): I10 - Essential (primary) hypertension Is this a current diagnosis for this admission?: Yes - Time Time Spent with patient: 25-34 minutes Level of Care: IMCU Medications reviewed and adjusted accordingly: Yes Anticipated discharge: Home Anticipated DC Timeframe: within 48 hours - Plan Summary Plan Summary: Continues to current medications Discussed with nursing staff no other concern Discussed with the patient's no other concerns Review all medications
[2020-01-25] MEDS: DEXAMETHASONE SOD PHOSPHATE INJ 4 MG/1 ML VIAL IV SCH ×2 (10:37→21:16)
[2020-01-25] MEDS: DOCUSATE SODIUM 100 MG CAPSULE PO SCH ×2 (10:37→17:14)
[2020-01-25] MEDS: REMDESIVIR (EUA) 100 MG in NORMAL SALINE 250 ML IV SCH (10:38)
[2020-01-25] MEDS: AMLODIPINE BESYLATE 5 MG TABLET PO SCH (13:28)
[2020-01-25] MEDS: LOSARTAN POTASSIUM 50 MG TABLET PO SCH (13:28)
[2020-01-25] MEDS: ENOXAPARIN SODIUM INJ 40 MG/0.4 ML DISP.SYRIN SUBCUT SCH (21:17)
[2020-01-25] MEDS: LEVOFLOXACIN 750 MG/D5W RTU 750 MG/150 ML RTUPB IV SCH (21:17)
[2020-01-26 07:20] LABS: ANION GAP 11 (5-19); BLOOD UREA NITROGEN 23 mg/dL (7-20); CARBON DIOXIDE 23 mmol/L (22-30); CHLORIDE 100 mmol/L (98-107); GLUCOSE 268 mg/dL (75-110); POTASSIUM 4.8 mmol/L (3.6-5.0)
[2020-01-26] MEDS: INSULIN LISPRO 100 UNIT/ML 3 ML VIAL SUBCUT SCH ×4 (08:27→22:10)
[2020-01-26] MEDS: DOCUSATE SODIUM 100 MG CAPSULE PO SCH ×2 (09:23→17:14)
[2020-01-26] MEDS: AMLODIPINE BESYLATE 5 MG TABLET PO SCH (09:23)
[2020-01-26] MEDS: LOSARTAN POTASSIUM 50 MG TABLET PO SCH (09:23)
[2020-01-26] MEDS: REMDESIVIR (EUA) 100 MG in NORMAL SALINE 250 ML IV SCH (09:24)
[2020-01-26] MEDS: DEXAMETHASONE SOD PHOSPHATE INJ 4 MG/1 ML VIAL IV SCH ×2 (09:24→21:01)
--- NOTE | 2020-01-26 09:47 | PDOC PROGRESS REPORT ---
Subjective Progress Note for:: 01/26/20 Subjective:: Patient is feeling much better Currently on room air Last dose of the antiviral drugs Denied any chest pain no short of breath Reason For Visit: COVID PNEUMONIA, T2DM, CAD Physical Exam Vital Signs: Temp Pulse Resp BP Pulse Ox 97.8 F 56 L 16 152/82 H 95 01/26/20 08:08 01/26/20 08:08 01/26/20 08:08 01/26/20 08:08 01/26/20 08:08 Intake & Output 01/25/20 01/26/20 01/27/20 06:59 06:59 06:59 Intake Total 1400 3030 Balance 1400 3030 Weight 108.7 kg 108.7 kg General appearance: PRESENT: no acute distress, well-developed, well-nourished Head exam: PRESENT: atraumatic, normocephalic Eye exam: PRESENT: conjunctiva pink, EOMI, PERRLA. ABSENT: scleral icterus Ear exam: PRESENT: normal external ear exam Mouth exam: PRESENT: moist, tongue midline Neck exam: PRESENT: full ROM. ABSENT: carotid bruit, JVD, lymphadenopathy, thyromegaly Cardiovascular exam: PRESENT: RRR. ABSENT: diastolic murmur, rubs, systolic murmur Pulses: PRESENT: normal [place] pedis pul, +2 pedal pulses bilateral Vascular exam: PRESENT: normal capillary refill GI/Abdominal exam: PRESENT: normal bowel sounds, soft. ABSENT: distended, guarding, mass, organolmegaly, rebound, tenderness Rectal exam: PRESENT: deferred Neurological exam: PRESENT: alert, awake, oriented to person, oriented to place, oriented to time, oriented to situation. ABSENT: motor sensory deficit Psychiatric exam: PRESENT: appropriate affect, normal mood. ABSENT: homicidal ideation, suicidal ideation Skin exam: PRESENT: dry, intact, warm. ABSENT: cyanosis, rash Results Laboratory Results: 01/24/20 04:41 01/26/20 05:47 01/26/20 05:47 Sodium 134.0 L Potassium 4.8 Chloride 100 Carbon Dioxide 23 Anion Gap 11 BUN 23 H Creatinine 0.61 Est GFR ( Amer) > 60 Glucose 268 H Calcium 9.0 01/21/20 01/21/20 23:30 23:30 Creatine Kinase 45 L CK-MB (CK-2) 0.57 Troponin I < 0.012 NT-Pro-B Natriuret Pep 35 Impressions: Chest X-Ray 01/21/20 22:40 IMPRESSION: Interstitial and airspace opacities bilaterally, as before copyright 2011 [employer]- All Rights Reserved Chest/Abdomen CTA 01/23/20 00:00 IMPRESSION: 1. NORMAL CTA OF THE CHEST. NO PULMONARY EMBOLI. 2. DIFFUSE SCATTERED GROUND-GLASS OPACITIES CONSISTENT WITH PNEUMONIA, LIKELY VIRAL. 3. MEDIASTINAL AND BILATERAL HILAR ADENOPATHY, UNCHANGED FROM PRIOR CTA IN 2016. Assessment & Plan - Diagnosis (1) Acute hypoxemic respiratory failure Is this a current diagnosis for this admission?: Yes (2) Acute hypoxemic respiratory failure due to COVID-19 Is this a current diagnosis for this admission?: Yes (3) COVID-19 virus infection Is this a current diagnosis for this admission?: Yes (4) Coronary artery disease Qualifiers: Coronary Disease-Associated Artery/Lesion type: [place] artery [place] vs. transplanted heart: [place] heart Associated angina: without angina Qualified Code(s): I25.10 - Atherosclerotic heart disease of [place] coronary artery without angina pectoris Is this a current diagnosis for this admission?: Yes (5) T2DM (type 2 diabetes mellitus) Qualifiers: Diabetes mellitus [facility] insulin use: with intermodal customer service use Diabetes mellitus complication status: with neurologic complications Diabetes mellitus complication detail: with polyneuropathy Qualified Code(s): E11.42 - Type 2 diabetes mellitus with diabetic polyneuropathy; Z79.4 - senior living (current) use of insulin Is this a current diagnosis for this admission?: Yes (6) Hypertension Qualifiers: Hypertension type: essential hypertension Qualified Code(s): I10 - Essential (primary) hypertension Is this a current diagnosis for this admission?: Yes - Time Time Spent with patient: 15-24 minutes Level of Care: IMCU Medications reviewed and adjusted accordingly: Yes Anticipated discharge: Home Anticipated DC Timeframe: within 24 hours - Plan Summary Plan Summary: Continues the current medications
[2020-01-26] MEDS: LEVOFLOXACIN 750 MG/D5W RTU 750 MG/150 ML RTUPB IV SCH (21:01)
[2020-01-26] MEDS: ENOXAPARIN SODIUM INJ 40 MG/0.4 ML DISP.SYRIN SUBCUT SCH (21:01)
[2020-01-27] MEDS: INSULIN LISPRO 100 UNIT/ML 3 ML VIAL SUBCUT SCH ×3 (07:59→16:53)
[2020-01-27 09:01] LABS: MEAN CORPUSCULAR HEMOGLOBIN 29.1 pg (27.0-33.4); MEAN CORPUSCULAR HGB CONC 34.2 g/dL (32.0-36.0); MEAN CORPUSCULAR VOLUME 85 fl (80-97); PLATELET COUNT 312 10^3/uL (150-450); RED BLOOD COUNT 4.82 10^6/uL (4.35-5.55); RED CELL DISTRIBUTION WIDTH 14.3 % (11.5-14.0); WHITE BLOOD COUNT 6.4 10^3/uL (4.0-10.5)
[2020-01-27] MEDS: DOCUSATE SODIUM 100 MG CAPSULE PO SCH ×2 (09:20→17:05)
[2020-01-27] MEDS: AMLODIPINE BESYLATE 5 MG TABLET PO SCH (09:20)
[2020-01-27 09:21] LABS: ANION GAP 10 (5-19); BLOOD UREA NITROGEN 24 mg/dL (7-20); CARBON DIOXIDE 28 mmol/L (22-30); CHLORIDE 95 mmol/L (98-107); GLUCOSE 218 mg/dL (75-110)
[2020-01-27] MEDS: LOSARTAN POTASSIUM 50 MG TABLET PO SCH (09:21)
[2020-01-27] MEDS: DEXAMETHASONE SOD PHOSPHATE INJ 4 MG/1 ML VIAL IV SCH (09:21)
[2020-01-27 09:39] LABS: CALCIUM 9.3 mg/dL (8.4-10.2); POTASSIUM 4.7 mmol/L (3.6-5.0)
[2020-01-27] MEDS ORDERED: BISACODYL 5 MG TABEC PO ONE (09:45)
[2020-01-27 18:15] VITALS: BP 146/74
--- NOTE | 2020-01-27 20:07 | PDOC DISCHARGE SUMMARY ---
Impression - Admit/DC Date/PCP Admission Date/Primary Care Provider: 01/21/20 23:42 JOHN FISHER MD Discharge Date: 01/27/20 - Discharge Diagnosis (1) Acute hypoxemic respiratory failure Is this a current diagnosis for this admission?: Yes (2) Acute hypoxemic respiratory failure due to COVID-19 Is this a current diagnosis for this admission?: Yes (3) T2DM (type 2 diabetes mellitus) Is this a current diagnosis for this admission?: Yes (4) Coronary artery disease Is this a current diagnosis for this admission?: Yes - Additional Information Discharge Diet: Diabetic Discharge Activity: Activity As Tolerated Referrals: JOHN FISHER MD [Primary Care Provider] - 01/31/20 2:45 pm Prescriptions: Dexamethasone [Decadron] 6 mg PO DAILY #4 tablet Home Medications: Amlodipine Besylate 5 mg PO DAILY 11/08/15 Losartan Potassium 100 mg PO DAILY 11/08/15 Metformin HCl [Glucophage] 1,000 mg PO BID 11/08/15 Metoprolol Tartrate [Lopressor 25 mg Tablet] 25 mg PO Q12 11/08/15 Aspirin [Ecotrin 81 mg EC Tablet] 81 mg PO DAILY #30 tabec 11/10/15 Glimepiride [Amaryl] 2 mg PO BID #0 tablet 11/10/15 Acetaminophen [Tylenol 8 Hour] 1,300 mg PO Q8HP PRN 01/22/20 Chlorpheniramine Maleate [Chlor-Trimeton 4 mg Tablet] 4 mg PO Q6HP PRN 01/22/20 Clopidogrel Bisulfate [Plavix 75 mg Tablet] 75 mg PO DAILY 01/22/20 Empagliflozin [Jardiance] 25 mg PO DAILY 01/22/20 Pantoprazole Sodium [Protonix [address] Tablet] 40 mg PO Q6AM 01/22/20 Dexamethasone [Decadron] 6 mg PO DAILY #4 tablet 01/27/20 History of Present Illiness History of Present Illness: MYNOR GALINDO JR is a 64 year old male, Patient was diagnosed with SARS-CoV-2 infection, I had a telehealth encounter with him yesterday, he complained of shortness of breath, I ordered a chest x-ray, it demonstrated multifocal bilateral infiltrates consistent with COVID immediately advised him to go to the ER for evaluation and possible admission.Arterial blood gas revealed pH 7.46, PO2 37.8, bicarbonate 25.1 on ambient air Hospital Course Hospital Course: Patient was admitted for the management of acute hypoxemic respiratory failure due to Covid pneumonia, He was treated with intravenous dexamethasone 3 mg IV every 12, intravenous remdesivir. Patient responded to treatment very well, initially he required supplemental oxygen via nasal cannula. He received 5-day course of intravenous remdesivir, patient is feeling better, he wants to go home today, he has 4 days of IV dexamethasone left to complete, this to be transitioned to p.o., he will be discharged home today.He also was treated empirically With IV Antibiotic to cover community-acquired pathogens Physical Exam Vital Signs: Temp Pulse Resp BP Pulse Ox 97.7 F 55 L 18 146/74 H 98 01/27/20 18:14 01/27/20 18:14 01/27/20 18:14 01/27/20 18:14 01/27/20 18:14 Intake & Output 01/26/20 01/27/20 01/28/20 06:59 06:59 06:59 Intake Total 3030 3592 3660 Balance 3030 3592 3660 Weight 108.7 kg 108.7 kg General appearance: PRESENT: no acute distress Eye exam: PRESENT: PERRLA Respiratory exam: PRESENT: clear to auscultation jatinder Cardiovascular exam: PRESENT: +S1, +S2 GI/Abdominal exam: PRESENT: soft Neurological exam: PRESENT: alert, CN II-XII grossly intact Results Laboratory Results: WBC 6.4 10^3/uL (4.0-10.5) 01/27/20 08:10 RBC 4.82 10^6/uL (4.35-5.55) 01/27/20 08:10 Hgb 14.0 g/dL (13.5-17.0) 01/27/20 08:10 Hct 41.0 % (37.9-51.0) 01/27/20 08:10 MCV 85 fl (80-97) 01/27/20 08:10 MCH 29.1 pg (27.0-33.4) 01/27/20 08:10 MCHC 34.2 g/dL (32.0-36.0) 01/27/20 08:10 RDW 14.3 % (11.5-14.0) H 01/27/20 08:10 Plt Count 312 10^3/uL (150-450) 01/27/20 08:10 Lymph % (Auto) 22.4 % (13-45) 01/24/20 04:41 Amelia % (Auto) 9.7 % (3-13) 01/24/20 04:41 Eos % (Auto) 0.0 % (0-6) 01/24/20 04:41 Baso % (Auto) 0.2 % (0-2) 01/24/20 04:41 Absolute Neuts (auto) 2.6 10^3/uL (1.7-8.2) 01/24/20 04:41 Absolute Lymphs (auto) 0.9 10^3/uL (0.5-4.7) 01/24/20 04:41 Absolute Monos (auto) 0.4 10^3/uL (0.1-1.4) 01/24/20 04:41 Absolute Eos (auto) 0.0 10^3/uL (0.0-0.6) 01/24/20 04:41 Absolute Basos (auto) 0.0 10^3/uL (0.0-0.2) 01/24/20 04:41 Seg Neutrophils % 67.7 % (42-78) 01/24/20 04:41 PT 12.2 SEC (11.4-15.4) 01/21/20 22:15 INR 0.88 01/21/20 22:15 APTT 27.1 SEC (23.5-35.8) 01/21/20 22:15 Carbonic Acid 1.10 mmol/L (1.05-1.35) 01/22/20 01:20 HCO3/H2CO3 Ratio 22:1 01/22/20 01:20 ABG pH 7.46 (7.35-7.45) H 01/22/20 01:20 ABG pCO2 36.4 mmHg (35-45) 01/22/20 01:20 ABG pO2 37.8 mmHg (80-100) L* 01/22/20 01:20 ABG HCO3 25.1 mmol/L (20-24) H 01/22/20 01:20 ABG Total CO2 26.2 mmol/L (23-27) 01/22/20 01:20 ABG O2 Saturation 75.1 % (94-98) L 01/22/20 01:20 ABG Base Excess 1.5 mmol/L 01/22/20 01:20 FiO2 ROOM AIR 01/22/20 01:20 Sodium 133.0 mmol/L (137-145) L 01/27/20 08:10 Potassium 4.7 mmol/L (3.6-5.0) 01/27/20 08:10 Chloride 95 mmol/L (98-107) L 01/27/20 08:10 Carbon Dioxide 28 mmol/L (22-30) 01/27/20 08:10 Anion Gap 10 (5-19) 01/27/20 08:10 BUN 24 mg/dL (7-20) H 01/27/20 08:10 Creatinine 0.65 mg/dL (0.52-1.25) 01/27/20 08:10 Est GFR ( Amer) > 60 (>60) 01/27/20 08:10 Est GFR (MDRD) Non-Af > 60 (>60) 01/27/20 08:10 Glucose 218 mg/dL (75-110) H 01/27/20 08:10 POC Glucose 309 mg/dL (70-110) H 01/27/20 16:37 Hemoglobin A1c % 10.2 % (4.7-6.0) H 01/22/20 06:24 Lactic Acid 1.3 mmol/L (0.7-2.1) 01/21/20 22:15 Calcium 9.3 mg/dL (8.4-10.2) 01/27/20 08:10 Total Bilirubin 0.7 mg/dL (0.2-1.3) 01/24/20 04:41 Direct Bilirubin 0.4 mg/dL (0.0-0.4) 01/24/20 04:41 Neonat Total Bilirubin Not Reportable 01/24/20 04:41 Neonat Direct Bilirubin Not Reportable 01/24/20 04:41 Neonat Indirect Bili Not Reportable 01/24/20 04:41 AST 33 U/L (17-59) 01/24/20 04:41 ALT 45 U/L (<50) 01/24/20 04:41 Alkaline Phosphatase 93 U/L (38-126) 01/24/20 04:41 Creatine Kinase 45 U/L (55-170) L 01/21/20 23:30 CK-MB (CK-2) 0.57 ng/mL (<4.55) 01/21/20 23:30 Troponin I < 0.012 ng/mL 01/21/20 23:30 NT-Pro-B Natriuret Pep 35 pg/mL (<125) 01/21/20 23:30 Total Protein 7.1 g/dL (6.3-8.2) 01/24/20 04:41 Albumin 3.9 g/dL (3.5-5.0) 01/24/20 04:41 Urine Color YELLOW 01/24/20 08:00 Urine Appearance CLEAR 01/24/20 08:00 Urine pH 5.0 (5.0-9.0) 01/24/20 08:00 Ur Specific [place] 1.030 01/24/20 08:00 Urine Protein NEGATIVE mg/dL (NEGATIVE) 01/24/20 08:00 Urine Glucose (UA) >=500 mg/dL (NEGATIVE) H 01/24/20 08:00 Urine Ketones 20 mg/dL (NEGATIVE) H 01/24/20 08:00 Urine Blood NEGATIVE (NEGATIVE) 01/24/20 08:00 Urine Nitrite NEGATIVE (NEGATIVE) 01/24/20 08:00 Urine Bilirubin NEGATIVE (NEGATIVE) 01/24/20 08:00 Urine Urobilinogen NEGATIVE mg/dL (<2.0) 01/24/20 08:00 Ur Leukocyte Esterase NEGATIVE (NEGATIVE) 01/24/20 08:00 Urine WBC (Auto) 1 /HPF 01/24/20 08:00 Urine RBC (Auto) 1 /HPF 01/24/20 08:00 Squamous Epi Cells Auto <1 /HPF 01/24/20 08:00 Urine Mucus (Auto) RARE /LPF 01/24/20 08:00 Urine Ascorbic Acid NEGATIVE (NEGATIVE) 01/24/20 08:00 01/21/20 23:30 CK-MB (CK-2) 0.57 Troponin I < 0.012 NT-Pro-B Natriuret Pep 35 Impressions: Chest X-Ray 01/21/20 22:40 IMPRESSION: Interstitial and airspace opacities bilaterally, as before copyright 2011 [employer]- All Rights Reserved Chest/Abdomen CTA 01/23/20 00:00 IMPRESSION: 1. NORMAL CTA OF THE CHEST. NO PULMONARY EMBOLI. 2. DIFFUSE SCATTERED GROUND-GLASS OPACITIES CONSISTENT WITH PNEUMONIA, LIKELY VIRAL. 3. MEDIASTINAL AND BILATERAL HILAR ADENOPATHY, UNCHANGED FROM PRIOR CTA IN 2016. Stroke Is this a Stroke Patient?: No Acute Heart Failure Is this a Heart Failure Patient?: No
[2020-01-27] MEDS ORDERED: LEVOFLOXACIN 750 MG TABLET PO SCH (22:00)
== END 2020-01-27 18:34 | disposition home or self-care (01) | DRG 177 ==
LOC: ER 20:13 → EH 23:42 → 3W 01-22 02:27 → 3N 01-23 14:54
PROVIDERS: ADMIT Internal Medicine; ATTEND Internal Medicine
PROC: XW033E5 Introduction of Remdesivir Anti-infective into Peripheral Vein, Percutaneous Approach, New Technology Group 5 (ICD-10-PCS; principal; 2020-01-21)
DX: U07.1 COVID-19 (principal); J12.89 Other viral pneumonia; J96.01 Acute respiratory failure with hypoxia; I25.10 Atherosclerotic heart disease of native coronary artery without angina pectoris; I10 Essential (primary) hypertension; E11.42 Type 2 diabetes mellitus with diabetic polyneuropathy; Z79.899 Other long term (current) drug therapy; Z79.82 Long term (current) use of aspirin; Z79.02 Long term (current) use of antithrombotics/antiplatelets; Z87.891 Personal history of nicotine dependence; Z79.4 Long term (current) use of insulin
CPT/HCPCS: 36415; 71045; 71046; 71275; 80048; 80053; 81001; 82550; 82553; 82803; 82962; 83036; 83605; 83880; 84484; 85025; 85027; 85610; 85730; 87040; 87086; 99284; J1100; J1650; J1815; J1956; J3490; J7030; J7050; S0028

== ENCOUNTER → 2020-01-21 | Outpatient (CLI) | payer MEDICARE ==
--- NOTE | 2020-01-21 14:28 | RADIOLOGY REPORT (SQ) ---
EXAM DESCRIPTION: CHEST 2 VIEWS IMAGES COMPLETED DATE/TIME: 01/21/2020 2:07 pm REASON FOR STUDY: U07.1 COVID-19 COMPARISON: 09/27/2018 EXAM PARAMETERS: NUMBER OF VIEWS: two views TECHNIQUE: Digital Frontal and Lateral radiographic views of the chest acquired. RADIATION DOSE: NA LIMITATIONS: none FINDINGS: LUNGS AND PLEURA: Multifocal bilateral infiltrates consistent with the history. Infiltrat es most prominent in the lung periphery although there is perihilar prominence as well. Findings are more prominent in the lung bases. MEDIASTINUM AND HILAR STRUCTURES: No masses or contour abnormalities. HEART AND VASCULAR STRUCTURES: Heart normal size. No evidence for failure. BONES: No acute findings. HARDWARE: None in the chest. OTHER: No other significant finding. IMPRESSION: Bilateral peripheral airspace disease. Mild perihilar infiltrate as well. No effusion or pneumothorax. TECHNICAL DOCUMENTATION: JOB ID: [id number] 2010 [employer]- All Rights Reserved Reading location - IP/workstation name: [email or web address]
== END ==
LOC: RAD 13:36
PROVIDERS: ATTEND Internal Medicine
DX: U07.1 COVID-19 (principal)
CPT/HCPCS: 71046

== ENCOUNTER → 2020-01-31 | Outpatient (CLI) | payer MEDICARE ==
--- NOTE | 2020-01-31 17:01 | RADIOLOGY REPORT (SQ) ---
EXAM DESCRIPTION: CHEST PA/LATERAL IMAGES COMPLETED DATE/TIME: 01/31/2020 4:31 pm REASON FOR STUDY: COVID-19 COMPARISON: 01/21/2020 EXAM PARAMETERS: NUMBER OF VIEWS: two views TECHNIQUE: Digital Frontal and Lateral radiographic views of the chest acquired. RADIATION DOSE: NA LIMITATIONS: none FINDINGS: LUNGS AND PLEURA: Bilateral infiltrates have resolved. MEDIASTINUM AND HILAR STRUCTURES: No masses or contour abnormalities. HEART AND VASCULAR STRUCTURES: Heart normal size. No evidence for failure. BONES: No acute findings. HARDWARE: None in the chest. OTHER: No other significant finding. IMPRESSION: NO SIGNIFICANT RADIOGRAPHIC FINDING IN THE CHEST. TECHNICAL DOCUMENTATION: JOB ID: [id number] 2010 [employer]- All Rights Reserved Reading location - IP/workstation name: [email or web address]
== END ==
LOC: OD 16:13
PROVIDERS: ATTEND Internal Medicine
DX: Z09 Encounter for follow-up examination after completed treatment for conditions other than malignant neoplasm (principal); Z86.19 Personal history of other infectious and parasitic diseases
CPT/HCPCS: 71046